=== PATIENT | male | born 1950 | race Two or more races ===

== ENCOUNTER 2016-09-04 14:17 | Emergency (ER) | payer OTHER ==
[2016-09-04 14:04] LABS: URINE SOURCE CLEAN CATCH
[2016-09-04 14:59] LABS: URINE APPEARANCE CLEAR; URINE BILIRUBIN NEG (NEG); URINE BLOOD TRACE (NEG); URINE COLOR YELLOW; URINE GLUCOSE NEG (NEG); URINE KETONE NEG (NEG); URINE LEUKOCYTE ESTERASE NEG (NEG); URINE NITRATE NEG (NEG); URINE PROTEIN NEG (NEG); URINE SPECIFIC GRAVITY 1.006 (1.003-1.035); URINE UROBILINOGEN 0.2 MG/DL (NEG)
[2016-09-04 15:06] LABS: CULTURE INDICATED? NO
[2016-09-05 19:54] LABS: CHLAMYDIA TRACH Not Detected (Not Detected); N GONOR Not Detected (Not Detected)
== END 2016-09-04 15:42 | disposition home or self-care (01) ==
LOC: CFTX 14:17
PROVIDERS: Nurse Practitioner
DX: N34.2 Other urethritis (principal); E11.9 Type 2 diabetes mellitus without complications
CPT/HCPCS: 81003; 87491; 87591; 96372; 99283; J0696

== ENCOUNTER 2016-09-23 08:26 | Emergency (ER) | payer OTHER | END 2016-09-23 09:09 | disposition home or self-care (01) | LOC: CED 08:26 → CFTX 08:26 → CED 09:04 → CFTX 09:04 | DX: K05.00 Acute gingivitis, plaque induced (principal); R03.0 Elevated blood-pressure reading, without diagnosis of hypertension; E11.9 Type 2 diabetes mellitus without complications | CPT/HCPCS: 99283 ==

== ENCOUNTER 2016-10-05 09:01 | Emergency (ER) | payer OTHER | END 2016-10-05 10:40 | disposition home or self-care (01) | LOC: CED 09:01 → CFTX 09:01 → CED 09:26 → CFTX 09:26 | DX: J02.9 Acute pharyngitis, unspecified (principal); B37.9 Candidiasis, unspecified | CPT/HCPCS: 82947; 87070; 87651; 99283 ==